=== PATIENT | female | born 1980 | race Two or more races ===

== ENCOUNTER 2019-10-04 17:38 | Emergency (ER) | payer OTHER ==
[~2019-10-04] VITALS: Ht 165.1 cm; Wt 68.0 kg
[~2019-10-04 17:38] MED LIST: IRON; VITA1CAP; VITAMIN C; ZINC
[2019-10-04 17:53] VITALS: BP 135/89
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
--- NOTE | 2019-10-04 18:10 | NUR ---
REPORT TO TO[facility]O BARBER.
[2019-10-04] MEDS ORDERED: DIPH,PERTUSS(ACELL),TET VAC/PF 0.5 ML IM-VACC ONE ×3 (18:30→18:43)
--- NOTE | 2019-10-04 18:49 | NUR ---
Patient given discharge instructions and they have confirmed that they understand the instructions. Patient ambulatory with steady gait.
== END 2019-10-04 18:51 | disposition home or self-care (01) ==
LOC: ED 18:40
DX: S61.032A Puncture wound without foreign body of left thumb without damage to nail, initial encounter (principal); X58.XXXA Exposure to other specified factors, initial encounter; Y93.89 Activity, other specified; Y92.009 Unspecified place in unspecified non-institutional (private) residence as the place of occurrence of the external cause; Y99.8 Other external cause status
CPT/HCPCS: 90471; 90715; 99283

== ENCOUNTER → 2020-04-13 | Outpatient (CLI) | payer OTHER | END | disposition home or self-care (01) | LOC: STAR 12:00 | PROVIDERS: ATTEND Obstetrics & Gynecology | DX: Z20.822 Contact with and (suspected) exposure to COVID-19 (principal) | CPT/HCPCS: 87635 ==

== ENCOUNTER 2020-04-18 09:55 | Day surgery (SDC) | payer OTHER ==
[~2020-04-18] VITALS: Ht 162.6 cm; Wt 72.5 kg
[2020-04-18 10:25] VITALS: BP 132/85
[2020-04-18] MEDS ORDERED: CHLORHEXIDINE 15 ML UDC MM ONE (10:30)
[2020-04-18] MEDS ORDERED: LACTATED RINGERS 1,000 ML IV SCH (10:30)
[2020-04-18 10:38] LABS: HCG UR SG 1.022 (1.003-1.030)
[2020-04-18] MEDS ORDERED: FENTANYL PF 100 MCG/2ML ONE ×3 (10:55→13:42)
[2020-04-18] MEDS ORDERED: MIDAZOLAM 1 MG/ML, 2ML ONE (10:55)
[2020-04-18] MEDS ORDERED: SILVER NITRATE STICK TP ONE (11:50)
[2020-04-18] MEDS ORDERED: MISOPROSTOL 200 MCG TABLET ONE (11:52)
[2020-04-18] MEDS ORDERED: OXYTOCIN 10 UNITS/ML, 1ML ONE (11:52)
[2020-04-18] MEDS ORDERED: METHYLERGONOVINE 0.2 MG/ML IM ONE (11:52)
[2020-04-18] MEDS ORDERED: KETOROLAC 30 MG/1 ML ONE (12:23)
[2020-04-18] MEDS ORDERED: ONDANSETRON 2MG/ML, 2ML ONE (12:23)
[2020-04-18] MEDS ORDERED: CEFAZOLIN 1,000 MG ONE (12:23)
[2020-04-18] MEDS ORDERED: DEXAMETHASONE 4 MG/ML, 1ML ONE (12:23)
[2020-04-18] MEDS ORDERED: PROPOFOL 10 MG/ML, 20ML ONE (12:23)
[2020-04-18] MEDS ORDERED: HYDROmorphone 1 MG/ML, 1ML INJ IVPush PRN (12:30)
[2020-04-18] MEDS ORDERED: ACETAMINOPHEN 325 MG TABLET PO PRN (12:30)
[2020-04-18] MEDS ORDERED: DIAZEPAM 5 MG/ML, 2ML IVPush PRN (12:30)
[2020-04-18] MEDS ORDERED: DIPHENHYDRAMINE 50 MG/ML, 1ML IVPush PRN (12:30)
[2020-04-18] MEDS ORDERED: OXYcodone 5 MG/5 ML ORAL.SOL UDC PO PRN (12:30)
[2020-04-18] MEDS ORDERED: FENTANYL PF 100 MCG/2ML IV PRN (12:30)
[2020-04-18] MEDS ORDERED: ONDANSETRON 2MG/ML, 2ML IVPush PRN (12:30)
[2020-04-18] MEDS ORDERED: MEPERIDINE/PF 25MG/0.5ML IVPush PRN (12:30)
[2020-04-18] MEDS ORDERED: PROMETHAZINE 25 MG/ML, 1ML IVPush PRN (12:30)
[2020-04-18] MEDS ORDERED: IBUP-1223 PO (13:17)
[2020-04-18] MEDS ORDERED: OXYC1TAB14 PO (13:17)
[2020-04-18] MEDS ORDERED: DOCU-131 PO (13:23)
[2020-04-18] MEDS ORDERED: OXYcodone 5 MG/5 ML ORAL.SOL UDC ONE (13:51)
== END 2020-04-18 15:20 | disposition home or self-care (01) ==
LOC: OUT 09:55
PROVIDERS: ATTEND Obstetrics & Gynecology
DX: N92.1 Excessive and frequent menstruation with irregular cycle (principal); N94.6 Dysmenorrhea, unspecified; Z79.899 Other long term (current) drug therapy; Z83.3 Family history of diabetes mellitus; Z82.49 Family history of ischemic heart disease and other diseases of the circulatory system; Z82.3 Family history of stroke
CPT/HCPCS: 58120; 58563; 81025; 88305; J0690; J1100; J1885; J2250; J2405; J2704; J3010; J2210; J2590

== ENCOUNTER 2020-05-04 08:54 | Outpatient (CLI) | payer OTHER ==
[~2020-05-04 08:54] MED LIST changes: +CHLORHEXIDINE 15 ML UDC ONE; +DOCU-131 PO; +IBUP-1223 PO; +OXYC1TAB14 PO
== END 2020-05-04 23:59 | disposition home or self-care (01) ==
LOC: CFH 08:54
PROVIDERS: ATTEND Obstetrics & Gynecology
DX: Z12.31 Encounter for screening mammogram for malignant neoplasm of breast (principal)
CPT/HCPCS: 77063; 77067

== ENCOUNTER 2020-10-10 12:24 | Outpatient (CLI) | payer OTHER ==
[~2020-10-10 12:24] MED LIST changes: -CHLORHEXIDINE 15 ML UDC ONE; +OXYC1TAB12 PO; -OXYC1TAB14 PO
[2020-10-10] MEDS ORDERED: VITAMIN B PO (13:08)
[2020-10-10] MEDS ORDERED: BROMELAIN PO (13:08)
[2020-10-10] MEDS ORDERED: ASCO100018 PO (13:08)
[2020-10-10] MEDS ORDERED: VITA1TAB19 PO (13:08)
[2020-10-10] MEDS ORDERED: LUTE10TA2 PO (13:08)
[2020-10-10] MEDS ORDERED: TURMERIC PO (13:08)
[2020-10-10] MEDS ORDERED: zinc PO (13:08)
[2020-10-10] MEDS ORDERED: Iron PO (13:08)
[2020-10-10] MEDS ORDERED: VITA100022 PO (13:08)
[2020-10-10] MEDS ORDERED: FOLI0.8C PO (13:08)
[2020-10-10] MEDS ORDERED: CHOL10003 PO (13:08)
[2020-10-16] MEDS ORDERED: CHLORHEXIDINE 15 ML UDC ONE (13:48)
[2020-10-16] MEDS ORDERED: FENTANYL PF 250 MCG/5ML ONE ×3 (13:56→16:01)
[2020-10-16] MEDS ORDERED: MIDAZOLAM 1 MG/ML, 2ML ONE (13:56)
[2020-10-16] MEDS ORDERED: ONDANSETRON 2MG/ML, 2ML IVPush PRN (14:30)
[2020-10-16] MEDS ORDERED: PROMETHAZINE 12.5 MG SUPP PR PRN (14:30)
[2020-10-16] MEDS ORDERED: METHOCARBAMOL 1,000 MG in DEXTROSE 5% 100 ML IV PRN (14:30)
[2020-10-16] MEDS ORDERED: MEPERIDINE/PF 25MG/0.5ML IVPush PRN (14:30)
[2020-10-16] MEDS ORDERED: PLEASE ENTER HEIGHT AND WEIGHT MC SCH (14:30)
[2020-10-16] MEDS ORDERED: HYDROmorphone 1 MG/ML, 1ML INJ IVPush PRN (14:30)
[2020-10-16] MEDS ORDERED: ACETAMINOPHEN 325 MG TABLET PO PRN (14:30)
[2020-10-16] MEDS ORDERED: OXYcodone 5 MG/5 ML ORAL.SOL UDC PO PRN (14:30)
[2020-10-16] MEDS ORDERED: FENTANYL PF 100 MCG/2ML IV PRN (14:30)
[2020-10-16] MEDS ORDERED: hydrALAzine 20 MG/ML, 1ML IV PRN (14:30)
[2020-10-16] MEDS ORDERED: EPHEDRINE 50 MG/ML, 1ML IVPush PRN (14:30)
[2020-10-16] MEDS ORDERED: LABETALOL 5MG/ML, 20ML IV PRN (14:30)
[2020-10-16] MEDS ORDERED: LORazepam 2 MG/ML, 1ML IVPush PRN (14:30)
[2020-10-16] MEDS ORDERED: PROPOFOL 50 ML ONE (14:36)
[2020-10-16] MEDS ORDERED: OXYC1TAB12 PO (16:47)
== END 2020-10-10 23:59 | disposition home or self-care (01) ==
LOC: STAR 12:24
PROVIDERS: ATTEND Obstetrics & Gynecology
DX: Z02.9 Encounter for administrative examinations, unspecified (principal)

== ENCOUNTER 2020-10-16 12:30 | Day surgery (SDC) | payer OTHER ==
[~2020-10-16] VITALS: Ht 162.6 cm; Wt 71.5 kg
[~2020-10-16 12:30] MED LIST changes: +ASCO100018 PO; +BROMELAIN PO; +CHOL10003 PO; +FOLI0.8C PO; +Iron PO; +LUTE10TA2 PO; -OXYC1TAB12 PO; +OXYC1TAB14 PO; +TURMERIC PO; +VITA100022 PO; +VITA1TAB19 PO; +VITAMIN B PO; +zinc PO
[2020-10-16 13:43] VITALS: BP 137/102
[2020-10-16] MEDS ORDERED: LACTATED RINGERS 1,000 ML IV SCH (14:00)
[2020-10-16] MEDS ORDERED: CHLORHEXIDINE 15 ML UDC PO ONE (14:00)
[2020-10-16] MEDS ORDERED: BUPIVACAINE 0.25% ONE (14:30)
[2020-10-16] MEDS ORDERED: FLUORESCEIN SODIUM 500 MG/5 ML ONE (14:31)
[2020-10-16] MEDS ORDERED: SCOPOLAMINE 1MG PATCH TD ONE (14:32)
[2020-10-16] MEDS ORDERED: CEFAZOLIN 1,000 MG ONE (14:44)
[2020-10-16] MEDS ORDERED: ROCURONIUM 10 MG/ML,10ML ONE (14:44)
[2020-10-16] MEDS ORDERED: FENTANYL PF 250 MCG/5ML ONE ×2 (14:44)
[2020-10-16] MEDS ORDERED: MIDAZOLAM 1 MG/ML, 2ML ONE (14:44)
[2020-10-16] MEDS ORDERED: DEXAMETHASONE 4 MG/ML, 1ML ONE (14:44)
[2020-10-16] MEDS ORDERED: CHLORHEXIDINE 15 ML UDC ONE (14:44)
[2020-10-16] MEDS ORDERED: SUCCINYLCHOLINE 20 MG/ML, 10ML ONE (14:44)
[2020-10-16] MEDS ORDERED: ONDANSETRON 2MG/ML, 2ML ONE (14:44)
[2020-10-16] MEDS ORDERED: KETOROLAC 30 MG/1 ML ONE (14:44)
[2020-10-16] MEDS ORDERED: PROPOFOL 10 MG/ML, 20ML ONE (14:44)
[2020-10-16] MEDS ORDERED: BUPIVACAINE/PF 0.25% INFIL ONE (15:18)
[2020-10-16] MEDS ORDERED: IBUP-1223 PO (16:47)
[2020-10-16] MEDS ORDERED: DOCU-131 PO (16:47)
[2020-10-16] MEDS ORDERED: OXYC1TAB14 PO (16:47)
[2020-10-16] MEDS ORDERED: ACETAMINOPHEN 650 MG/20.3 ML UDC ONE (16:59)
[2020-10-16] MEDS ORDERED: OXYcodone 5 MG/5 ML ORAL.SOL UDC ONE (16:59)
[2020-10-16] MEDS ORDERED: hydrALAzine 20 MG/ML, 1ML ONE (17:24)
[2020-10-16] MEDS ORDERED: PROMETHAZINE 25 MG/ML, 1ML IVPush PRN (17:30)
[2020-10-16] MEDS ORDERED: FENTANYL PF 100 MCG/2ML IV PRN (17:30)
[2020-10-16] MEDS ORDERED: MEPERIDINE/PF 25MG/0.5ML IVPush PRN (17:30)
[2020-10-16] MEDS ORDERED: LABETALOL 5MG/ML, 20ML IV PRN (17:30)
[2020-10-16] MEDS ORDERED: ONDANSETRON 2MG/ML, 2ML IVPush PRN (17:30)
[2020-10-16] MEDS ORDERED: hydrALAzine 20 MG/ML, 1ML IV PRN (17:30)
[2020-10-16] MEDS ORDERED: OXYcodone 5 MG/5 ML ORAL.SOL UDC PO PRN (17:30)
[2020-10-16] MEDS ORDERED: ACETAMINOPHEN 325 MG TABLET PO PRN (17:30)
== END 2020-10-16 18:40 | disposition home or self-care (01) ==
LOC: OR 12:30
PROVIDERS: ATTEND Obstetrics & Gynecology
DX: N93.9 Abnormal uterine and vaginal bleeding, unspecified (principal); N94.6 Dysmenorrhea, unspecified; N80.3 Endometriosis of pelvic peritoneum; N80.1 Endometriosis of ovary; N80.0 Endometriosis of uterus; R87.612 Low grade squamous intraepithelial lesion on cytologic smear of cervix (LGSIL); N73.6 Female pelvic peritoneal adhesions (postinfective); Z79.899 Other long term (current) drug therapy; Z83.3 Family history of diabetes mellitus; Z82.49 Family history of ischemic heart disease and other diseases of the circulatory system; Z82.3 Family history of stroke
CPT/HCPCS: 58552; 81025; 88307; J0330; J0360; J0690; J1100; J1885; J2250; J2405; J2704; J3010; J7120; S2900